=== PATIENT | female | born 1995 | race Two or more races ===

== ENCOUNTER 2022-01-06 12:25 | Emergency (ER) | payer OTHER ==
[~2022-01-06] VITALS: Ht 172.7 cm; Wt 113.4 kg
[~2022-01-06 12:25] MED LIST: CEFADROXIL500 MG PO; KEPPRA500 MG PO; KEPPRA750 MG; PRILOSEC40 MG PO; PROTONIX40 MG; TUSSI-PRES LIQ118 ML PO; ZANTAC150 MG PO; ZITHROMAX500 MG PO
[2022-01-06] MEDS ORDERED: LEVSIN/SL0.125 MG SL (16:19)
[2022-01-06] MEDS ORDERED: PEPCID AC20 MG PO (16:19)
== END 2022-01-06 16:49 | disposition home or self-care (01) ==
LOC: ER 12:25
DX: K29.70 Gastritis, unspecified, without bleeding (principal); Z20.822 Contact with and (suspected) exposure to COVID-19

== ENCOUNTER 2022-01-10 00:06 | Inpatient (IN) | payer OTHER ==
[~2022-01-10] VITALS: Ht 172.7 cm; Wt 113.4 kg
[~2022-01-10 00:06] MED LIST changes: +LEVSIN/SL0.125 MG SL; +PEPCID AC20 MG PO
--- NOTE | 2022-01-10 00:18 | NUR ---
SE RECIBE PACIENTE FEMENINA DE 26 ANOS DE EDAD DESPIERTA Y ALERTA CON DOLOR ABDOMINAL LADO DERECHO. PACIENTE PENDIENTE A SER OPERADA PARA SACAR VESICULA POR DR. LAURA LAZAR
[2022-01-10] MEDS ORDERED: PROTONIX40 MG (00:19)
[2022-01-10] MEDS ORDERED: CONZIP200 MG (00:20)
[2022-01-10] MEDS ORDERED: AMOX250 (00:20)
--- NOTE | 2022-01-10 01:30 | NUR ---
SE LE ORIENTA A PTE SOBRE TRATAMIENTO A SEGUIR, DILLAN REFIERE ENTENDER. SE LE COLECTA MUESTRAS, SE CANALIZA Y SE ADMINISTRA MEDICAMENTO BELLA ORDEN MEDICA UTILIZANDO MEDIDAS ASEPTICAS. PENDIENTE U/A Y SONO
--- NOTE | 2022-01-10 07:08 | NUR ---
SE RECIBE PACIENTE DEL TURNO ANTERIOR ALERTA Y ORIENTADA X3 UBICADA EN [place] CON BRANDAS ELEVADAS POR PRECAUCION A CAIDAS, IV FLUIDS PATENTE, NADIR DE EDEMA Y ERITEMA. SE MANTIENE PACIENTE BAJO OBSERVACION POR CAMBIOS SIGNIFICATIVOS EN FITZGERALD TRATAMIENTO.
--- NOTE | 2022-01-10 14:33 | NUR ---
PTE EVALUADA EN LA OFICINA MEDICA DEL DR.LOPEZ LAZAR EL CUAL SE ENCUENTRA DE VIAJE EN ESTOS MOMENTOS E INDICA QUE TIENE CUBIERTA MEDICA SOLAMENTE EN CENTRO MEDICO. INTENTA CONSULTAR A PTE CON CIRUJANO DE JOSS EL CUAL INDICA QUE NO PUEDE EVALUAR A LA PTE DEBIDO A QUE PTE FUE EVALUADA POR DR.LOPEZ LAZAR. DIALOGA CON DR.RAFAEL KIRK (DIRECTOR MEDICO) PARA NOTIFICARLE LISA DE LA PTE. SE INTENTA LLAMAR A CENTRO MEDICO LOS CUALES NO CONTESTAN AL MOMENTO.
--- NOTE | 2022-01-10 15:38 | NUR ---
SE RECIBE PTE DEL TURNO ANTERIOR, ALERTA Y ORIENTADA EN JESSIE DORA ESFERAS, UBICADA EN [place], NIVEL MAS BAJO, CRAWFORD DE IDENTIFICACION Y BARANDAS ELEVADAS POR PRECAUCION, EN COMPANIA DE FAMILIAR. SE OBSERVA CON BUEN PATRON RESPIRATORIO Y PIEL TIBIA AL TACTO. IV PATENTE Y NADIR DE EDEMA O EIRTEMA CON 0.9% NSS @125ML/HR.
--- NOTE | 2022-01-10 17:28 | NUR ---
SE REALIZA ADMINISTRACION DE MEDICAMENTOS POR ORDEN MEDICA, SE ORIENTA A PACIENTE Y FAMILIAR SOBRE USO Y EFECTO.
--- NOTE | 2022-01-10 17:45 | NUR ---
SE REALIZO ADMINISTRACION DE TERAPIA INTRAVENOSA.
== END 2022-01-15 11:36 | disposition home or self-care (01) | DRG 419 ==
LOC: ER 00:06 → SURH 18:31 → SEC-K 18:31 → SURH 19:22
PROVIDERS: ADMIT Surgery; ATTEND Surgery
PROC: 0FN44ZZ Release Gallbladder, Percutaneous Endoscopic Approach (ICD-10-PCS; 2022-01-11)
PROC: 0FT44ZZ Resection of Gallbladder, Percutaneous Endoscopic Approach (ICD-10-PCS; principal; 2022-01-11 10:00)
DX: K80.10 Calculus of gallbladder with chronic cholecystitis without obstruction (principal); K29.00 Acute gastritis without bleeding; R10.11 Right upper quadrant pain; Z20.822 Contact with and (suspected) exposure to COVID-19; F41.0 Panic disorder [episodic paroxysmal anxiety]; F32.89 Other specified depressive episodes

== ENCOUNTER 2022-01-19 06:54 | Inpatient (IN) | payer OTHER ==
[~2022-01-19] VITALS: Ht 172.7 cm; Wt 113.4 kg
[~2022-01-19 06:54] MED LIST changes: +AMOX250; +CONZIP200 MG
== END 2022-01-26 17:48 | disposition home or self-care (01) | DRG 446 ==
LOC: ER 06:54 → SEC-K 19:42 → SURH 19:42
PROVIDERS: ADMIT Surgery; ATTEND Surgery
PROC: BW40ZZZ Ultrasonography of Abdomen (ICD-10-PCS; 2022-01-19)
PROC: BF37ZZZ Magnetic Resonance Imaging (MRI) of Pancreas (ICD-10-PCS; 2022-01-19)
PROC: 0DJ08ZZ Inspection of Upper Intestinal Tract, Via Natural or Artificial Opening Endoscopic (ICD-10-PCS; principal; 2022-01-22)
PROC: 02HV33Z Insertion of Infusion Device into Superior Vena Cava, Percutaneous Approach (ICD-10-PCS; 2022-01-23)
PROC: 0FC98ZZ Extirpation of Matter from Common Bile Duct, Via Natural or Artificial Opening Endoscopic (ICD-10-PCS; 2022-01-25)
DX: K80.51 Calculus of bile duct without cholangitis or cholecystitis with obstruction (principal); G89.18 Other acute postprocedural pain; K29.00 Acute gastritis without bleeding; F41.8 Other specified anxiety disorders; Z20.822 Contact with and (suspected) exposure to COVID-19

== ENCOUNTER 2024-03-09 09:33 | Outpatient (CLI) | payer OTHER ==
[~2024-03-09 09:33] MED LIST changes: +ALBUTEROL2.5 MG/3 M IH; +BUDESONIDE0.5 MG/2 M IH; +PROAIR RESPICL90 MCG IH; +ZYNCOF 20-400120 ML PO
== END 2024-03-09 09:40 | disposition home or self-care (01) ==
LOC: RAD 09:33
PROVIDERS: ATTEND Internal Medicine Pulmonary Disease
DX: J45.31 Mild persistent asthma with (acute) exacerbation (principal); E66.01 Morbid (severe) obesity due to excess calories

== ENCOUNTER 2024-11-04 04:51 | Emergency (ER) | payer OTHER ==
[~2024-11-04] VITALS: Ht 172.7 cm; Wt 111.1 kg
[2024-11-04] MEDS ORDERED: FAMOTIDINE/PF 20 MG/2 ML VIAL IV PUSH ONE (05:30)
[2024-11-04] MEDS ORDERED: DIPHENOXYLATE HCL/ATROPINE 1 UDTAB TABLET PO ONE (05:30)
[2024-11-04] MEDS ORDERED: ONDANSETRON HCL 2 MG/ML VIAL IV ONE (05:30)
[2024-11-04] MEDS ORDERED: METHYLPREDNISOLONE SOD SUCC 125 MG VIAL IV ONE (05:45)
[2024-11-04] MEDS ORDERED: 0.9 % SODIUM CHLORIDE 1,000 ML IV SCH (05:45)
[2024-11-04 06:46] LABS: HEMATOCRIT 42.3 % (36.0-45.00); HEMOGLOBIN 13.9 g/dL (12.0-15.00); MEAN CELL VOLUME 87.7 fL (80.00-100.00); MEAN CORPUSCULAR HEMOGLOBIN 28.9 pg (27.00-32.0); PLATELET COUNT 336 K/uL (150-450); RED BLOOD COUNT 4.82 M/uL (4.00-6.00); RED CELL DISTRIBUTION WIDTH 12.8 % (11.5-14.5)
[2024-11-04 07:44] LABS: BILIRUBIN TOTAL 0.47 mg/dL (0.3-1.2); BILIRUBIN,CONJUGATED 0.12 mg/dL (0.0-0.2); BILIRUBIN,UNCONJUGATED 0.35 mg/dL (0.0-0.6); CALCIUM 9.3 mg/dL (8.5-10.1); CREATININE SERUM 0.85 mg/dL (0.55-1.02); GFR 78.53; GLOBULINA 3.4 G/DL (2.4-3.5); POTASSIUM 4.12 mEq/L (3.5-5.1); TOTAL PROTEIN 7.4 gm/dL (6.4-8.2)
[2024-11-04] MEDS ORDERED: CEFAZOLIN SODIUM 1,000 MG VIAL IM STA (10:00)
== END 2024-11-04 10:51 | disposition home or self-care (01) ==
LOC: ER 04:54
PROVIDERS: General Practice
DX: K52.89 Other specified noninfective gastroenteritis and colitis (principal); R11.2 Nausea with vomiting, unspecified

== ENCOUNTER 2025-04-15 11:15 | Emergency (ER) | payer OTHER ==
[~2025-04-15] VITALS: Ht 172.7 cm; Wt 111.1 kg
[2025-04-15 12:25] LABS: BASO % 0.7 % (0.1-1.2); EOS # 0.22 (0.04-0.54); EOS % 3.0 % (0.7-7.0); LYMPH # 1.59 (1.18-3.74); LYMPH % 21.9 % (19.3-53.1); MEAN PLATELET VOLUME 10.90 fl (9.4-12.4); MONO # 0.48 (0.24-0.82); MONO % 6.6 % (4.7-12.5); NEUT # 4.90 (1.56-6.13); NEUT % 67.5 % (34.0-71.1); RED CELL DISTRIBUTION WIDTH 11.9 % (11.6-14.4)
[2025-04-15 13:15] LABS: BUN CREA RATIO 17.0 (7.0-25.0); CREATININE SERUM 0.83 mg/dL (0.55-1.02); GFR 80.72; GLUCOSE FASTING 86.0 mg/dL (65-100); OSMOLALITY SERUM 285.0 MOSM/KG (275-295)
== END 2025-04-15 15:31 | disposition home or self-care (01) ==
LOC: ER 11:15
PROVIDERS: Emergency Medicine
DX: G40.89 Other seizures (principal)

== ENCOUNTER 2025-05-23 13:16 | Outpatient (CLI) | payer OTHER | END 2025-05-23 13:17 | disposition home or self-care (01) | LOC: TOM 13:16 | DX: R19.00 Intra-abdominal and pelvic swelling, mass and lump, unspecified site (principal) ==

== ENCOUNTER 2025-07-05 12:53 | Outpatient (CLI) | payer OTHER | END 2025-07-05 13:10 | disposition home or self-care (01) | LOC: SONOGRAMA 12:53 | PROVIDERS: ATTEND Specialist | DX: R10.30 Lower abdominal pain, unspecified (principal) ==

== ENCOUNTER 2025-07-10 07:07 | Outpatient (CLI) | payer OTHER | END 2025-07-10 07:08 | disposition home or self-care (01) | LOC: NUCLEAR 07:07 | PROVIDERS: ATTEND Internal Medicine Rheumatology | DX: M06.4 Inflammatory polyarthropathy (principal) ==